=== PATIENT | male | born 1990 | race African-American/Black ===

== ENCOUNTER 2019-06-29 12:29 | Emergency (ER) | payer OTHER ==
[2019-06-29 12:46] VITALS: BP 133/78; PULSE 92; RESP 20; TEMP 97.9
--- NOTE | 2019-06-29 13:37 | ED ---
General Adult HPI - General Chief complaint: Psychiatric Symptoms Stated complaint: Mental Health Time Seen by Provider: 06/29/19 13:02 Source: patient, RN notes reviewed Mode of arrival: ambulatory Limitations: no limitations - History of Present Illness Initial comments: Patient is a pleasant 29-year-old male presenting to the emergency department requesting housing. Patient states he did have a fever, subjective 3 days ago. No other febrile symptoms. Patient states she does have chronic anxiety. Patient denies any new mental health complaints. No suicidal or homicidal thoughts. No hallucinations. Patient is taking care of himself otherwise. No alcohol or street drug use. - Related Data Allergies Allergy/AdvReac Type Severity Reaction Status Date / Time No Known Allergies Allergy Verified 06/29/19 12:46 Review of Systems ROS Statement: Those systems with pertinent positive or pertinent negative responses have been documented in the HPI. ROS Other: All systems not noted in ROS Statement are negative. Constitutional: Reports: as per HPI Eyes: Denies: eye pain ENT: Denies: ear pain, throat pain Respiratory: Denies: cough, dyspnea Cardiovascular: Denies: chest pain Endocrine: Denies: fatigue Gastrointestinal: Denies: abdominal pain Genitourinary: Denies: dysuria Musculoskeletal: Denies: back pain Skin: Denies: rash Neurological: Denies: weakness Past Medical History Past Medical History: Seizure Disorder History of Any Multi-Drug Resistant Organisms: None Reported Past Surgical History: Orthopedic Surgery Additional Past Surgical History / Comment(s): rt foot Past Psychological History: Anxiety, Depression Smoking Status: Current every day smoker Past Alcohol Use History: Occasional Past Drug Use History: Marijuana General Exam Limitations: no limitations General appearance: alert, in no apparent distress Head exam: Present: normocephalic Eye exam: Present: normal appearance, PERRL ENT exam: Present: normal oropharynx Neck exam: Present: normal inspection Respiratory exam: Present: normal lung sounds bilaterally Cardiovascular Exam: Present: regular rate, normal rhythm GI/Abdominal exam: Present: soft. Absent: tenderness Extremities exam: Present: normal inspection Neurological exam: Present: alert Psychiatric exam: Present: normal affect, normal mood Skin exam: Present: normal color Course Vital Signs 06/29/19 12:41 Temperature 97.9 F Pulse Rate 92 Respiratory 20 Rate Blood Pressure 133/78 O2 Sat by Pulse 100 Oximetry Disposition Clinical Impression: Acute anxiety Disposition: HOME SELF-CARE Condition: Stable Instructions (If sedation given, give patient instructions): Generalized Anxiety Disorder (ED) Additional Instructions: Please follow-up with primary care physician in the next couple days for recheck. Return for thoughts of self-harm, not taking care of herself, worsening symptoms or other concerns. Please provide list for home was shelters. Is patient prescribed a controlled substance at d/c from ED?: No Referrals: Mendez Manning MD [REFERRING] - 1-2 days Time of Disposition: 13:37
== END 2019-06-29 13:57 | disposition home or self-care (01) ==
LOC: EC 12:29
DX: F41.9 Anxiety disorder, unspecified (principal); F17.200 Nicotine dependence, unspecified, uncomplicated
CPT/HCPCS: 82075; 99283